=== PATIENT | male | born 1960 | race Two or more races ===

== ENCOUNTER 2025-04-28 06:36 | Day surgery (SDC) | payer OTHER ==
[2025-04-21 11:27] VITALS: BP 142/75
[~2025-04-28] VITALS: Ht 177.8 cm; Wt 98.4 kg
[~2025-04-28 06:36] MED LIST: AMLODIPINE-OLM1 EAC2; COZAAR100 MG PO; EZALLOR SPRINKL10 MG PO; FARXIGA5 MG PO; ZETIA10 MG PO
[2025-04-28] MEDS ORDERED: CEFAZOLIN SODIUM 1,000 MG VIAL IV ONE (13:45)
[2025-04-28] MEDS ORDERED: FAMOTIDINE/PF 20 MG/10 ML SYRINGE IV SCH (15:00)
[2025-04-28] MEDS ORDERED: CEFAZOLIN SODIUM 1,000 MG VIAL IV SCH (15:00)
[2025-04-28] MEDS ORDERED: MORPHINE SULFATE 4 MG/ML VIAL IV ONE ×2 (15:50→16:20)
== END 2025-04-28 18:30 | disposition home or self-care (01) ==
LOC: CIR.AMB 06:36
PROVIDERS: ATTEND Specialist
DX: K40.90 Unilateral inguinal hernia, without obstruction or gangrene, not specified as recurrent (principal)